=== PATIENT | male | born 1955 | race Caucasian/White ===

== ENCOUNTER 2017-05-28 09:46 | Emergency (ER) | payer OTHER ==
[~2017-05-28] VITALS: Ht 157.5 cm; Wt 68.7 kg
[~2017-05-28 09:46] MED LIST: ALEVE220 MG PO; HYDROCODON-ACE1 EAC7 PO; LISINOPRIL10 MG PO; MOBIC7.5 MG PO; VICODIN 5-3001 EACH PO; ZYRTEC10 M3 PO
[2017-05-28 10:22] LABS: HEMATOCRIT 40.2 % (38.0-50.0); MCH 31.7 PG (29.0-34.0); MCHC 34.1 G/DL (30.0-36.0); MCV 93.1 FL (86-99); MEAN PLAT.VOLUME 10.2 uM^3 (9.0-12.4); PLATELET COUNT 233 K/uL (156-360); RBC DIS.WIDTH-CV 13.4 % (11.8-14.6); RBC DIS.WIDTH-SD 45.8 % (39-53); RED BLOOD COUNT 4.32 M/uL (4.00-5.50); WHITE BLOOD COUNT 6.9 K/uL (4.1-10.2)
[2017-05-28 10:33] LABS: CHLORIDE 101 mEq/L (99-109); POTASSIUM 4.3 mEq/L (3.7-5.4); SODIUM 137 mEq/L (136-147)
[2017-05-28 10:35] LABS: GLUCOSE 133 mg/dL (70-99)
[2017-05-28 10:36] LABS: ANION GAP 12 MEQ/L (2-14)
[2017-05-28 10:37] LABS: TOTAL BILIRUBIN 0.6 mg/dL (0.0-1.0)
[2017-05-28 10:39] LABS: ALKALINE PHOSPHATASE 67 IU/L (3-129); GFR ESTIMATE (CALCULATED) > 59 mL/min/
[2017-05-28 10:40] LABS: UREA NITROGEN (BUN) 12 mg/dL (9-23)
[2017-05-28 11:17] LABS: ADD MIUA? NO; BILIRUBIN NEGATIVE; BLOOD NEGATIVE; COLOR YELLOW ((YELLOW)); GLUCOSE (STRIP) NEGATIVE; KETONES NEGATIVE; LEUKOCYTES NEGATIVE; NITRITE NEGATIVE; PROTEIN (STRIP) NEGATIVE; SPECIFIC GRAVITY 1.015 (1.000-1.030); UROBILINOGEN 0.2 MG/DL (0.2-1.0)
[2017-05-28 12:12] LABS: UCUL ADDED? NO
[2017-05-28] MEDS ORDERED: PERCOCET 5/31 TABLET PO (13:18)
[2017-05-28 13:26] VITALS: BP 128/82
== END 2017-05-28 13:28 | disposition home or self-care (01) ==
LOC: EME 09:46
DX: R10.30 Lower abdominal pain, unspecified (principal); R35.0 Frequency of micturition; R30.0 Dysuria; K76.0 Fatty (change of) liver, not elsewhere classified; K57.30 Diverticulosis of large intestine without perforation or abscess without bleeding; F17.200 Nicotine dependence, unspecified, uncomplicated
CPT/HCPCS: 74177; 80053; 81003; 85027; 99281; 99285; J7030